=== PATIENT | female | born 1995 | race Hispanic/Latino ===

== ENCOUNTER 2019-07-15 09:12 | Emergency (ER) | payer OTHER ==
[2019-07-15 09:56] LABS: APPEARANCE,URINE CLOUDY (CLEAR); BILIRUBIN,URINE NEGATIVE (NEGATIVE); COLOR,URINE YELLOW (YELLOW); GLUCOSE, URINE (UA) NEGATIVE (NEGATIVE); KETONES,URINE NEGATIVE (NEGATIVE); LEUKOCYTE ESTERASE ,URINE MODERATE (NEGATIVE); NITRATE,URINE POSITIVE (NEGATIVE); OCCULT BLOOD,URINE LARGE (NEGATIVE); PROTEIN,URINE >=300 mg/dL (NEGATIVE); UROBILINOGEN,URINE 0.2 mg/dL (0.2-1.0)
[2019-07-15 09:58] LABS: HCG,QUAL RESULT NEGATIVE (NEGATIVE)
[2019-07-15] MEDS ORDERED: ONDANSETRON 4 MG TABLET ONE (10:05)
[2019-07-15] MEDS ORDERED: ACETAMINOPHEN EXTRA STRENGTH 500 MG TABLET ONE (10:06)
[2019-07-15 10:33] LABS: BACTERIA,URINE Few /HPF (None Seen); MUCUS,URINE Few LPF (None Seen); SQUAMOUS EPITHELIAL CELL,UR Few /HPF (0-2); WBC,URINE >100 /HPF (0-1)
== END 2019-07-15 11:34 | disposition home or self-care (01) ==
LOC: EDH 09:12
DX: N39.0 Urinary tract infection, site not specified (principal); Z88.0 Allergy status to penicillin
CPT/HCPCS: 76856; 81001; 81025; 99284; Q0162

== ENCOUNTER 2020-09-13 18:04 | Emergency (ER) | payer OTHER | END 2020-09-13 18:08 | disposition left against medical advice (07) | LOC: EDH 18:04 | DX: Z53.21 Procedure and treatment not carried out due to patient leaving prior to being seen by health care provider (principal) ==